=== PATIENT | male | born 1985 | race Caucasian/White ===

== ENCOUNTER 2020-08-25 14:50 | Emergency (ER) | payer BC, OTHER ==
--- NOTE | 2020-08-25 17:34 | CT ---
CT Brain WO Con History: Trauma Comparison: None. Findings: Right frontal scalp contusion and hematoma. Underlying calvarium is intact. Globes are inta ct. No acute hemorrhage or infarct. No midline shift or mass effect. Ventricular size and extra-axial CSF spaces are normal. Impression: Right frontal scalp contusion and hematoma without acute posttraumatic intracranial abnor mality.
== END 2020-08-25 17:53 | disposition home or self-care (01) ==
LOC: ERS 14:50
DX: S00.03XA Contusion of scalp, initial encounter (principal); Y04.8XXA Assault by other bodily force, initial encounter
CPT/HCPCS: 70450